=== PATIENT | female | born 1960 | race African-American/Black ===

== ENCOUNTER 2018-10-27 19:46 | Inpatient (IN) | payer MEDICARE, MEDICAID ==
[2018-10-27] MEDS ORDERED: Sterile Water 10 ML VIAL IVP PRN (23:38)
[2018-10-27] MEDS ORDERED: Activase 2 MG VIAL CATH PRN (23:38)
[2018-10-27] MEDS ORDERED: Benzocaine 20% Spray 60 ML CAN PO PRN (23:40)
[2018-10-27] MEDS ORDERED: cloNIDine 0.1 MG TAB PO PRN (23:41)
[2018-10-27] MEDS ORDERED: Chloraseptic Spray 180 ml Bottle PO PRN (23:51)
[2018-10-27] MEDS ORDERED: Sodium Bicarbonate Tab 325 MG TAB PER TUBE PRN (23:56)
[2018-10-27] MEDS ORDERED: Pancrelipase DR 12000 1 CAP FS PRN (23:56)
[2018-10-28] MEDS: HYDROcodone/Acetaminophen 5/325 mg Tablet PO PRN ×4 (00:20→21:16)
[2018-10-28] MEDS: hydrOXYzine 25 MG TAB PO PRN ×3 (00:20→15:26)
[2018-10-28] MEDS ORDERED: Ondansetron ODT 4 MG TAB PO SCH (00:30)
[2018-10-28] MEDS: Ondansetron ODT 4 MG TAB PO SCH ×6 (00:35→23:28)
[2018-10-28 01:48] VITALS: BMI 30.7
[2018-10-28 07:03] LABS: #Basophils 0.2 thou/uL (0.0-0.2); #Eosinphils 0.2 thou/uL (0.0-0.7); #Lymphocytes 4.5 thou/uL (1.20-3.40); #Monocytes 1.1 thou/uL (0.11-0.59); #Neutrophils 6.3 thou/uL (1.40-6.50); %Basophils 1.6 % (0.0-1.0); %Eosinophils 1.9 % (0.0-10.0); %Lymphocytes 36.4 % (21.0-51.0); %Monocytes 8.9 % (0.0-10.0); %Neutrophils 51.3 % (42.0-75.0); Anion Gap 14 mmol/L (10-20); BUN (Urea Nitrogen) 56 mg/dL (9.8-20.1); Calc. Creatinine Clearance 18 mL/min (70-130); Calcium 9.8 mg/dL (7.8-10.44); Carbon Dioxide 29 mmol/L (22-29); Chloride 98 mmol/L (98-107); Estimated GFR-MDRD 14; Glucose 110 mg/dL (70-105); Hemoglobin 7.5 g/dL (12.0-16.0); Mean Corpuscular HGB CONC 30.2 g/dL (32.0-36.0); Mean Corpuscular Hemoglobin 28.6 pg (27.0-31.0); Mean Corpuscular Volume 94.7 fL (78.0-98.0); Mean Platelet Volume 7.7 fL (7.4-10.4); Phosphorus 2.3 mg/dL (2.3-4.7); Platelet Count 409 thou/uL (130-400); Potassium 4.1 mmol/L (3.5-5.1); RBC Distribution Width 18.5 % (11.5-14.5); Red Blood Cell (RBC) Count 2.63 mill/uL (4.20-5.40); Sodium 137 mmol/L (136-145); White Blood Cell (WBC) Count 12.4 thou/uL (4.8-10.8)
[2018-10-28] MEDS: Metoclopramide HCl 10 MG TAB PO SCH ×4 (09:36→20:48)
[2018-10-28] MEDS: Zinc Sulfate 220 MG CAP PO SCH (09:37)
[2018-10-28] MEDS: FLUoxetine HCl 20 MG CAP PO SCH (09:37)
[2018-10-28] MEDS: Multivitamin W/ Minerals 1 TAB PO SCH (09:37)
[2018-10-28] MEDS: Calcium Carbonate 500 MG ChewTAB PO SCH ×3 (09:37→17:25)
[2018-10-28] MEDS: PHOS-NAK 1 PKT PACK PER TUBE SCH (09:37)
[2018-10-28] MEDS: Ascorbic Acid 500 mg Chewable Tablet PO SCH ×2 (09:37→20:48)
[2018-10-28] MEDS: Heparin 5,000 UNITS/ML VIAL SC SCH ×2 (09:39→20:52)
[2018-10-28] MEDS: Dronabinol 2.5 MG CAP PO SCH ×2 (15:28→20:52)
[2018-10-28] MEDS: Cepastat Lozenges 1 LOZ PO SCH ×2 (15:28→20:48)
[2018-10-28] MEDS: Megestrol Acetate 800 MG/20 ML UDCUP PO SCH (15:28)
[2018-10-28] MEDS: Lorazepam 1 MG TAB PO PRN (20:51)
--- NOTE | 2018-10-29 01:02 | HP ---
HISTORY OF PRESENT ILLNESS: The patient is a 57-year-old black female with a history of recent prolonged correction stay, status post rectal surgery with developed of a left heel decubitus secondary to sedentary status. She subsequently also had a gastric sleeve operation in January of 2018 with postoperative difficulty with recurrent nausea, vomiting, poor oral intake, and subsequent dehydration and weakness. This precipitated the admission where she had total parental nutrition for a time, improved, was taken off this, sent to [facility]. There again, she was sedentary and began to have recurrent nausea and vomiting. Went back to the hospital at this time having poor healing of the left heel decubitus and left lateral foot decubitus. I and D was subsequently done. She has a history of end-stage renal disease, on dialysis. This was continued. It was felt that her poor oral intake and her dialysis put her in a catabolic state and that she could not heal and therefore had a Dobhoff tube placed as she was not a candidate for a PEG tube because of recent gastric sleeve. She did tolerate tube feedings. Her TPN was finally discontinued and in fact she was eating some oral food. She was on Reglan and appeared to be getting better, but was felt not to be stable to be discharged back to the correction and was transferred to the [facility] for better observation and monitoring of her nutritional status, her wound care, and her diabetic gastroparesis. There is a plan that if she cannot tolerate the Dobhoff, she would have to have a surgical jejunostomy by Dr. Rivera. She did, however, improved with the TPN and Dobhoff with replacement of her magnesium and phosphorus. As mentioned above, she continued on her dialysis. She had no problems with congestive heart failure, chest pain, fever, chills, diarrhea, cough, or sputum production. 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 PAST SURGICAL HISTORY: Positive for AV fistula for hemodialysis, gastric sleeve with intestinal repair in January of 2018, bilateral cataracts, right arm and hand surgery, cholecystectomy, right mastectomy, tonsillectomy, and placement of a right internal jugular dual-lumen hemodialysis catheter. MEDICATIONS: On transfer included; 1. Tylenol 1000 mg every 4 hours as needed. 2. Keflex 500 mg twice daily for the wound. 3. Marinol 5 mg twice daily for recurrent nausea. 4. Fluoxetine 20 mg daily. 5. Hydrocodone 5/325 every 6 hours as needed. 6. Lorazepam 0.5 mg every 8 hours as needed. 7. Megace 800 mg daily. 8. Zofran 4 mg every 6 hours as needed. 9. Pancrelipase 12,000 units 3 times daily. 10. Protonix 40 mg daily. 11. Sodium bicarb 650 mg daily. 12. Reglan 10 mg before meals and at bedtime. ALLERGIES: SHE HAS HISTORY OF ALLERGIES TO CODEINE AND LATEX. REVIEW OF SYSTEMS: HEENT: She has occasional headaches. She has no change in her vision. She has no hoarseness, sore throat, or nosebleeds. PULMONARY: She denies shortness of breath, wheezing, cough, fever, night sweats. CARDIOVASCULAR: She denies palpitations, shortness of breath, orthopnea, chest pain. GASTROINTESTINAL: She has a very poor appetite, recurrent nausea and vomiting. No diarrhea, constipation, abdominal pain. GENITOURINARY: She denies dysuria, hematuria, or nocturia. MUSCULOSKELETAL: She denies pain and stiffness in her arms and legs. PHYSICAL EXAMINATION: GENERAL: The patient is a middle-aged black female, lying in bed, in no acute distress, appear fatigued, is oriented x3, cooperative. VITAL SIGNS: Show to have blood pressure 141/90, O2 sats 100% on 1.5 L, respirations 20, pulse 92, afebrile. HEENT: Pupils are equal, round, and reactive to light and accommodation. Sclerae anicteric. Conjunctivae pale. Oral mucous membranes well hydrated. NECK: Supple. No nodes or masses. There is internal jugular catheter in place. LUNGS: Clear to auscultation and percussion bilaterally. CARDIOVASCULAR: Showed regular rhythm. No gallops or murmurs. ABDOMEN: Soft and nontender. No masses or organomegaly. Moderately obese. No rebound or guarding. SKIN/EXTREMITIES: Display no edema, clubbing, cyanosis. Showed left heel is bandaged and is offloaded. NEUROLOGICAL: Cranial nerves 2 through 12 intact. Deep tendon reflexes 2+ and equal. Absent Babinski. There is a Dobhoff in place through her nose. LABORATORY DATA: Today reveal white count 12,400, hematocrit 24, hemoglobin 7.5. PT 13, INR 1.0. Sodium 137, potassium 4.1, chloride 98, bicarb 29, BUN 56, creatinine 4.11, glucose 110. Accu-Cheks ranged from 109 to 225. Calcium 9.8, phosphorus 2.3. ASSESSMENT: 1. The patient is a 57-year-old black female with a history of type 2 diabetes; subsequent end-stage renal disease, on hemodialysis 3 times weekly, who has developed a left heel ulcer secondary to sedentary activity and catabolic state from end-stage renal disease. She has had very poor appetite, in fact recurrent nausea and vomiting after a gastric sleeve. This is despite having 2 rounds of TPN. She is still requiring a Dobhoff feeding. She is not a candidate for PEG tube because of her surgery. Interestingly, however, she is eating at times with no nausea and vomiting. 2. Severe deconditioning with mainly bed rest for the last several months. 3. Malnutrition secondary to recurrent nausea and vomiting, now improving after TPN and Dobhoff feeding. PLAN: 1. Continue dialysis on Wednesday, , and Wednesday under Dr. Whaley. 2. Continue Dobhoff feeding with tube feeding, Chadwick high-protein tube feed at 40 mL an hour, 30 mL every 4-hour water flush in addition to her oral Ruben high-protein, consistent carb diet. 3. Heel decubitus will be cared for by the Wound Care. 4. Vital signs will be monitored closely and continued on previous medications of clonidine as needed for elevated blood pressure. 5. Her anxiety, depression will continue to be treated with fluoxetine 20 mg daily. 6. Her gastroparesis will be treated with Zofran and Reglan and she will be continued on tube feedings as tolerated and if cannot tolerate tube feedings, will require transfer back to [facility] for surgical jejunostomy and possible debridement of left heel decubitus. Job ID: [id number]
[2018-10-29] MEDS: HYDROcodone/Acetaminophen 5/325 mg Tablet PO PRN ×3 (04:40→20:05)
[2018-10-29] MEDS: hydrOXYzine 25 MG TAB PO PRN (04:41)
[2018-10-29] MEDS: Ondansetron ODT 4 MG TAB PO SCH ×4 (05:16→23:54)
--- NOTE | 2018-10-29 08:35 | PRG ---
DATE OF SERVICE: 10/29/2018 SUBJECTIVE: Ms. Chino is a very pleasant 57-year-old black female, who has had multiple medical problems, but has basically end-stage renal disease, on dialysis three times a week. She has had a gastric sleeve, but was unable to tolerate oral food. She had a Dobhoff placed because she was unable to have a PEG tube placed. She has had some tube feedings and occasionally is able to eat real food. She has had significant nutritional problems and has not been eating well. She does have diabetic gastroparesis. She was transferred to [facility] for physical therapy and occupational therapy, and especially to monitor nutritional status and increase her nutrition. She is also here for better observation and wound care. The patient states she had a fairly good night last night and feels a little better this morning. She states her abdomen is not bothering her much at all today. OBJECTIVE: VITAL SIGNS: Blood pressure last night was 168/72, pulse 89, respirations 18, O2 saturation 100% on 2 L nasal cannula. T-max 98.4. GENERAL: This is a well-developed, well-nourished, somewhat obese, black female, who is resting and states she is doing well. HEENT: Normocephalic and nontraumatic cranium. The pupils are equally round and reactive. Extraocular movements are intact. Nose and throat are clear. Mucous membranes are moist. NECK: Supple without masses, nodes or bruits. IJ catheter is in place. LUNGS: The chest is clear to auscultation. No rales, no rhonchi, no wheezes are heard today. No cough is noted. HEART: Regular rate and rhythm without murmurs, gallops, or rubs. ABDOMEN: Soft, nontender without organomegaly. Normal bowel sounds are noted. No rebound or guarding is noted. Large incision, well-healed, midline. GENITOURINARY: Deferred. EXTREMITIES: Reveal no clubbing, cyanosis, or edema. The patient has her left heel offloaded and it is bandaged. NEURO: The patient is oriented to person, place, and time. The patient does have a Dobhoff, which is functioning well . ASSESSMENT: 1. Diabetes type 2. 2. End-stage renal disease, on hemodialysis three times a week. 3. Left heel decubitus ulcer. 4. Catabolic state secondary to end-stage renal disease. 5. Nausea and vomiting post gastric sleeve. Therefore, the patient has a jejunostomy tube. 6. Dobhoff feeding tube. 7. Malnutrition secondary to nausea and vomiting. 8. Cough, generalized weakness. PLAN: 1. Continue dialysis Wednesday, , Wednesday by Dr. Whaley. 2. Continue Dobhoff feedings. 3. Wound care for the patient's decubitus on her heel. 4. Monitor the patient's blood pressure closely and adjust medications as needed. 5. Continue fluoxetine for anxiety and depressive disorder. 6. Continue Reglan and Zofran for gastroparesis. 7. If the patient is unable to tolerate her tube feedings, she will have to be transferred to [facility] for surgical jejunostomy. Job ID: [id number]
[2018-10-29] MEDS: Multivitamin W/ Minerals 1 TAB PO SCH (08:45)
[2018-10-29] MEDS: Heparin 5,000 UNITS/ML VIAL SC SCH ×2 (08:45→20:04)
[2018-10-29] MEDS: Calcium Carbonate 500 MG ChewTAB PO SCH ×3 (08:45→18:37)
[2018-10-29] MEDS: Cepastat Lozenges 1 LOZ PO SCH ×3 (08:45→20:07)
[2018-10-29] MEDS: FLUoxetine HCl 20 MG CAP PO SCH (08:45)
[2018-10-29] MEDS: Metoclopramide HCl 10 MG TAB PO SCH ×4 (08:45→20:05)
[2018-10-29] MEDS: Ascorbic Acid 500 mg Chewable Tablet PO SCH ×2 (08:45→20:05)
[2018-10-29] MEDS: Zinc Sulfate 220 MG CAP PO SCH (08:45)
[2018-10-29] MEDS: PHOS-NAK 1 PKT PACK PER TUBE SCH (08:45)
[2018-10-29] MEDS: Dronabinol 2.5 MG CAP PO SCH ×2 (08:46→20:07)
[2018-10-29] MEDS: Megestrol Acetate 800 MG/20 ML UDCUP PO SCH (08:46)
[2018-10-29] MEDS: Lorazepam 1 MG TAB PO PRN (20:05)
[2018-10-30] MEDS: hydrOXYzine 25 MG TAB PO PRN ×2 (03:06→21:50)
[2018-10-30] MEDS: HYDROcodone/Acetaminophen 5/325 mg Tablet PO PRN ×3 (03:06→17:11)
[2018-10-30] MEDS: Ondansetron ODT 4 MG TAB PO SCH ×4 (05:33→23:37)
--- NOTE | 2018-10-30 08:02 | PRG ---
DATE OF SERVICE: SUBJECTIVE: This is a well-developed, well-nourished, very pleasant 57-year-old black female with multiple problems including end-stage renal disease that has to be on hemodialysis three times a week, gastric sleeve, but mainly poor nutritional intake. She has not been able to eat very well because of her diabetic gastroparesis. She was transferred to [facility] for PT and OT and to monitor her nutritional status. I walked in this morning and she says, "I am hungry today and I want to eat something." She states she did have some eggs and a biscuit and sausage yesterday and was able to tolerate that fairly well. She states she has begun to feel much better and much stronger. OBJECTIVE: VITAL SIGNS: Today, reveal blood pressure 136/64, pulse 87 to 93, respirations 18, O2 saturation 100% on 2 L, and T-max 98. GENERAL: This is a well-developed, well-nourished, very pleasant black female, in no apparent distress at this time. HEENT: Normocephalic and nontraumatic cranium. Pupils equal, round, and reactive. Extraocular movements are intact. Nose and throat are clear. Dobhoff tube was noted to be down the right naris. Mucous membranes are moist. NECK: Supple without masses, nodes, or bruits. CHEST: Clear to auscultation. No rales, rhonchi, wheezes, or cough is heard today. HEART: Reveals a regular rate and rhythm without murmurs, gallops, or rubs. ABDOMEN: Soft, nontender. No organomegaly is noted. Normal bowel sounds are noted in all 4 quadrants. No rebound or guarding is noted. Abdominal incision is still well healed. : Deferred. EXTREMITIES: Reveal no clubbing, cyanosis, or edema. The patient's left heel is offloaded and still bandaged. NEUROLOGIC: The patient is oriented x3. ASSESSMENT: 1. Diabetes type 2, which is fairly well under control with good sugars. 2. End-stage renal disease, on hemodialysis three times a week. 3. Left heel ulcer. 4. Catabolic state secondary to end-stage renal disease. 5. Nausea and vomiting post gastric sleeve, so therefore the patient has a jejunostomy tube and a Dobhoff feeding tube. 6. Malnutrition secondary to nausea and vomiting. 7. Cough. 8. The patient states she is hungry and feels better about eating today. PLAN: 1. Continue dialysis Wednesday, , Wednesday under the auspices of Dr. Whaley. 2. Continue Dobhoff feedings. 3. Wound care for the patient's decubitus on her heel. 4. Encourage the patient to eat a little bit of food each day. 5. Monitor the patient's blood pressure closely. Adjust medications as needed. 6. Continue fluoxetine for anxiety and depressive disorder. 7. Continue Reglan and Zofran for gastroparesis. 8. If the patient is unable to tolerate her tube feeding, she will have to be transferred to [facility] for surgical jejunostomy. Job ID: [id number]
[2018-10-30] MEDS: Heparin 5,000 UNITS/ML VIAL SC SCH ×2 (09:17→20:33)
[2018-10-30] MEDS: FLUoxetine HCl 20 MG CAP PO SCH (09:18)
[2018-10-30] MEDS: PHOS-NAK 1 PKT PACK PER TUBE SCH (09:18)
[2018-10-30] MEDS: Lorazepam 1 MG TAB PO PRN (09:18)
[2018-10-30] MEDS: Cepastat Lozenges 1 LOZ PO SCH ×3 (09:18→20:33)
[2018-10-30] MEDS: Multivitamin W/ Minerals 1 TAB PO SCH (09:18)
[2018-10-30] MEDS: Zinc Sulfate 220 MG CAP PO SCH (09:18)
[2018-10-30] MEDS: Dronabinol 2.5 MG CAP PO SCH ×2 (09:19→20:34)
[2018-10-30] MEDS: Megestrol Acetate 800 MG/20 ML UDCUP PO SCH (09:19)
[2018-10-30] MEDS: Ascorbic Acid 500 mg Chewable Tablet PO SCH ×2 (09:19→20:33)
[2018-10-30] MEDS: Metoclopramide HCl 10 MG TAB PO SCH ×4 (09:19→20:33)
[2018-10-30] MEDS: Calcium Carbonate 500 MG ChewTAB PO SCH ×3 (09:19→17:10)
[2018-10-31] MEDS: HYDROcodone/Acetaminophen 5/325 mg Tablet PO PRN ×4 (01:45→23:18)
[2018-10-31] MEDS: Ondansetron ODT 4 MG TAB PO SCH ×4 (05:14→23:24)
[2018-10-31] MEDS: Cepastat Lozenges 1 LOZ PO SCH ×3 (08:16→20:30)
[2018-10-31] MEDS: Calcium Carbonate 500 MG ChewTAB PO SCH ×3 (08:16→16:26)
[2018-10-31] MEDS: Ascorbic Acid 500 mg Chewable Tablet PO SCH ×2 (08:16→20:26)
[2018-10-31] MEDS: Metoclopramide HCl 10 MG TAB PO SCH ×4 (08:16→20:26)
[2018-10-31] MEDS: Heparin 5,000 UNITS/ML VIAL SC SCH ×3 (08:17→20:29)
[2018-10-31] MEDS: Dronabinol 2.5 MG CAP PO SCH ×2 (08:17→20:15)
[2018-10-31] MEDS: FLUoxetine HCl 20 MG CAP PO SCH (08:17)
[2018-10-31] MEDS: Megestrol Acetate 800 MG/20 ML UDCUP PO SCH (08:18)
[2018-10-31] MEDS: Multivitamin W/ Minerals 1 TAB PO SCH (08:18)
[2018-10-31] MEDS: PHOS-NAK 1 PKT PACK PER TUBE SCH (08:18)
[2018-10-31] MEDS: Zinc Sulfate 220 MG CAP PO SCH (08:19)
[2018-10-31] MEDS: hydrOXYzine 25 MG TAB PO PRN ×3 (10:03→23:20)
[2018-10-31] MEDS ORDERED: Megestrol Acetate 400 MG/10 ML UDCUP PO SCH (11:30)
[2018-10-31 16:16] LABS: #Basophils 0.1 thou/uL (0.0-0.2); #Eosinphils 0.2 thou/uL (0.0-0.7); #Lymphocytes 3.3 thou/uL (1.20-3.40); #Monocytes 0.7 thou/uL (0.11-0.59); #Neutrophils 5.5 thou/uL (1.40-6.50); %Basophils 1.4 % (0.0-1.0); %Eosinophils 2.3 % (0.0-10.0); %Lymphocytes 33.3 % (21.0-51.0); %Monocytes 7.3 % (0.0-10.0); %Neutrophils 55.7 % (42.0-75.0); ALT (SGPT) 9 U/L (8-55); AST (SGOT) 14 U/L (5-34); Albumin 3.1 g/dL (3.5-5.0); Alkaline Phosphatase 135 U/L (40-150); Anion Gap 16 mmol/L (10-20); BUN (Urea Nitrogen) 53 mg/dL (9.8-20.1); Bilirubin, Total 0.3 mg/dL (0.2-1.2); Calc. Creatinine Clearance 17 mL/min (70-130); Calcium 9.8 mg/dL (7.8-10.44); Carbon Dioxide 29 mmol/L (22-29); Chloride 97 mmol/L (98-107); Estimated GFR-MDRD 12; Globulin 4.3 g/dL (2.4-3.5); Glucose 148 mg/dL (70-105); Hemoglobin 8.2 g/dL (12.0-16.0); Mean Corpuscular HGB CONC 30.5 g/dL (32.0-36.0); Mean Corpuscular Hemoglobin 29.1 pg (27.0-31.0); Mean Corpuscular Volume 95.5 fL (78.0-98.0); Mean Platelet Volume 8.4 fL (7.4-10.4); Platelet Count 392 thou/uL (130-400); Potassium 4.1 mmol/L (3.5-5.1); Protein, Total 7.4 g/dL (6.0-8.3); RBC Distribution Width 17.9 % (11.5-14.5); Red Blood Cell (RBC) Count 2.83 mill/uL (4.20-5.40); Sodium 138 mmol/L (136-145); White Blood Cell (WBC) Count 9.9 thou/uL (4.8-10.8)
--- NOTE | 2018-10-31 16:56 | PRG ---
DATE OF SERVICE: 10/31/2018 SUBJECTIVE: The patient is lying in the bed, feels well, but states that she does not want to have her Dobhoff replaced. It is clogged at this time. She is eating fairly well, but states she cannot eat all the food that is given to her on the tray. She is advised that the reason she is here is to increase her nutrition and hopefully heal her wounds. OBJECTIVE: LUNGS: Clear. CARDIAC: Showed regular rhythm. ABDOMEN: Soft and nontender. VITAL SIGNS: Show blood pressure 145/65, pulse 92, O2 saturation 100% on 1.5 L. EXTREMITIES: Left heel is bandaged. LABORATORY DATA: Show sodium is 138, potassium 4.1, chloride 97, bicarb 29, BUN 53, creatinine 4.56, glucose ranged from 148 to 165. Albumin is 3.1. ASSESSMENT: 1. End-stage renal disease, stable, on hemodialysis 3 times weekly. 2. Poor nutrition secondary to poor oral intake status post gastric sleeve with possible gastroparesis, possible psychogenic. 3. Left heel decubitus, healing poorly secondary to poor nutrition. PLAN: 1. Stressed the patient's need to increase the nutrition, and we will do calorie count and strict I and O as she is refusing Dobhoff at this time. 2. Discussed with surgeon and possibly discharge home. If not receiving Dobhoff, there is no indication for admission, but we will discuss with Physical Therapy. Job ID: [id number]
[2018-11-01] MEDS: Ondansetron ODT 4 MG TAB PO SCH ×4 (05:40→23:20)
[2018-11-01] MEDS: HYDROcodone/Acetaminophen 5/325 mg Tablet PO PRN ×3 (07:16→23:20)
[2018-11-01] MEDS: Metoclopramide HCl 10 MG TAB PO SCH ×4 (07:16→20:58)
[2018-11-01] MEDS: hydrOXYzine 25 MG TAB PO PRN ×3 (07:16→23:20)
[2018-11-01] MEDS: Calcium Carbonate 500 MG ChewTAB PO SCH ×3 (09:02→17:06)
[2018-11-01] MEDS: Heparin 5,000 UNITS/ML VIAL SC SCH ×2 (09:03→20:58)
[2018-11-01] MEDS: Cepastat Lozenges 1 LOZ PO SCH ×3 (09:03→20:58)
[2018-11-01] MEDS: Dronabinol 2.5 MG CAP PO SCH ×2 (09:03→20:58)
[2018-11-01] MEDS: FLUoxetine HCl 20 MG CAP PO SCH (09:03)
[2018-11-01] MEDS: Ascorbic Acid 500 mg Chewable Tablet PO SCH ×2 (09:03→20:57)
[2018-11-01] MEDS: Megestrol Acetate 400 MG/10 ML UDCUP PO SCH (09:04)
[2018-11-01] MEDS: Multivitamin W/ Minerals 1 TAB PO SCH (09:04)
[2018-11-01] MEDS: PHOS-NAK 1 PKT PACK PER TUBE SCH (09:05)
[2018-11-01] MEDS: Zinc Sulfate 220 MG CAP PO SCH (09:05)
--- NOTE | 2018-11-01 19:02 | PRG ---
DATE OF SERVICE: 11/01/2018 SUBJECTIVE: The patient is lying in bed, resting, has been eating 30% of her meals a day, and calorie count has shown that she has refused dinner and has taken in only 892 calories today. She is still on dialysis and has been told that this is not enough to sustain her weight and much less to heal her wound. She is still refusing Dobbhoff tube, also her daughter is refusing to take her home and I advised the patient that she will not survive without ingesting more food and cannot live without assistance. OBJECTIVE: VITAL SIGNS: Show temperature is 98, pulse 85, respirations 20, O2 sats 100% on 2 L, and blood pressure 160/56. LUNGS: Clear. CARDIAC: Regular rhythm. ABDOMEN: Soft and nontender. EXTREMITIES: Left heel is bandaged. LABORATORY DATA: Shows Accu-Cheks ranged from 98 to 141. ASSESSMENT: 1. Persistent poor oral intake and catabolic state with only 892 calories in, inability to the heel decubitus. 2. Stable end-stage renal disease, on hemodialysis. PLAN: Discussed discharge planning with daughter and mother and surgeon, Dr. Rivera. This patient does not meet qualifications to stay at SNF if she is not undergoing Dobbhoff treatment and wound care and is only using outpatient dialysis and eating oral foods. Job ID: [id number]
[2018-11-02] MEDS: Ondansetron ODT 4 MG TAB PO SCH ×3 (05:26→17:50)
[2018-11-02] MEDS: HYDROcodone/Acetaminophen 5/325 mg Tablet PO PRN ×3 (05:56→19:48)
[2018-11-02] MEDS: hydrOXYzine 25 MG TAB PO PRN ×2 (05:56→13:25)
[2018-11-02] MEDS: Calcium Carbonate 500 MG ChewTAB PO SCH ×3 (09:26→17:50)
[2018-11-02] MEDS: Zinc Sulfate 220 MG CAP PO SCH (09:30)
[2018-11-02] MEDS: Ascorbic Acid 500 mg Chewable Tablet PO SCH ×2 (09:30→20:45)
[2018-11-02] MEDS: Multivitamin W/ Minerals 1 TAB PO SCH (09:30)
[2018-11-02] MEDS: Heparin 5,000 UNITS/ML VIAL SC SCH ×2 (09:30→20:45)
[2018-11-02] MEDS: FLUoxetine HCl 20 MG CAP PO SCH (09:30)
[2018-11-02] MEDS: Metoclopramide HCl 10 MG TAB PO SCH ×4 (09:31→20:46)
[2018-11-02] MEDS: PHOS-NAK 1 PKT PACK PER TUBE SCH (09:31)
[2018-11-02] MEDS: Megestrol Acetate 400 MG/10 ML UDCUP PO SCH (09:31)
[2018-11-02] MEDS: Cepastat Lozenges 1 LOZ PO SCH ×3 (09:32→20:45)
[2018-11-02] MEDS: Dronabinol 2.5 MG CAP PO SCH ×2 (12:14→20:45)
[2018-11-02] MEDS: Lorazepam 1 MG TAB PO PRN (19:48)
[2018-11-02] MEDS: Mirtazapine 30 MG TAB PO SCH (20:46)
[2018-11-03] MEDS: Ondansetron ODT 4 MG TAB PO SCH ×4 (05:36→18:29)
--- NOTE | 2018-11-03 07:39 | PRG ---
DATE OF SERVICE: 11/02/2018 SUBJECTIVE: The patient is sitting up in the chair eating her meals. Apparently is eating close to 900 calories daily plus the Nepro and is taking her calcium supplements. She states that she is attempting to work with therapy, but agrees that she might need a different antidepressant as the Prozac has not worked for her before. She also states that she does not want to go home without walking. Discussed with Dr. Rivera, who feels that 1000 calories a day would be her maximum and that she should heal her wounds if she ambulates. OBJECTIVE: VITAL SIGNS: Show blood pressure 156/60, temperature is 98, pulse 80, respirations 20, O2 saturations 100% on room air. Accu-Cheks ranged from 99 to 174. LUNGS: Clear. CARDIAC: Showed regular rhythm. ABDOMEN: Soft and nontender. ASSESSMENT: 1. Stable end-stage renal disease, on hemodialysis. 2. Healing left heel decubitus. 3. Decreased, but stable supplemental intake with 900 calories daily and Nepro. 4. Depression and anxiety persistent despite taking Prozac, which patient states does not work for her. PLAN: Discontinue Prozac. Start mirtazapine 30 mg every night, and monitor oral intake and mood. Job ID: [id number]
[2018-11-03] MEDS: Heparin 5,000 UNITS/ML VIAL SC SCH ×2 (09:13→22:01)
[2018-11-03] MEDS: Megestrol Acetate 400 MG/10 ML UDCUP PO SCH (09:13)
[2018-11-03] MEDS: Ascorbic Acid 500 mg Chewable Tablet PO SCH ×2 (09:14→22:00)
[2018-11-03] MEDS: Zinc Sulfate 220 MG CAP PO SCH (09:14)
[2018-11-03] MEDS: PHOS-NAK 1 PKT PACK PER TUBE SCH (09:14)
[2018-11-03] MEDS: Multivitamin W/ Minerals 1 TAB PO SCH (09:14)
[2018-11-03] MEDS: Dronabinol 2.5 MG CAP PO SCH ×2 (09:16→22:01)
[2018-11-03] MEDS: HYDROcodone/Acetaminophen 5/325 mg Tablet PO PRN ×2 (09:19→22:02)
[2018-11-03] MEDS: hydrOXYzine 25 MG TAB PO PRN (09:20)
[2018-11-03] MEDS: Cepastat Lozenges 1 LOZ PO SCH ×3 (09:20→22:00)
[2018-11-03] MEDS: Metoclopramide HCl 10 MG TAB PO SCH ×4 (09:20→22:01)
[2018-11-03] MEDS: Calcium Carbonate 500 MG ChewTAB PO SCH ×3 (09:20→18:28)
[2018-11-03] MEDS: Mirtazapine 30 MG TAB PO SCH (22:02)
[2018-11-03] MEDS: Lorazepam 1 MG TAB PO PRN (22:03)
[2018-11-04] MEDS: Ondansetron ODT 4 MG TAB PO SCH ×4 (06:12→23:10)
[2018-11-04] MEDS: Megestrol Acetate 400 MG/10 ML UDCUP PO SCH (08:56)
[2018-11-04] MEDS: Dronabinol 2.5 MG CAP PO SCH ×2 (08:56→21:28)
[2018-11-04] MEDS: Ascorbic Acid 500 mg Chewable Tablet PO SCH ×2 (08:57→21:29)
[2018-11-04] MEDS: Multivitamin W/ Minerals 1 TAB PO SCH (08:57)
[2018-11-04] MEDS: Zinc Sulfate 220 MG CAP PO SCH (08:57)
[2018-11-04] MEDS: Metoclopramide HCl 10 MG TAB PO SCH ×4 (08:57→21:29)
[2018-11-04] MEDS: HYDROcodone/Acetaminophen 5/325 mg Tablet PO PRN ×2 (09:04→21:36)
[2018-11-04] MEDS: Heparin 5,000 UNITS/ML VIAL SC SCH ×2 (09:24→21:29)
[2018-11-04] MEDS: Calcium Carbonate 500 MG ChewTAB PO SCH ×3 (09:35→18:07)
[2018-11-04] MEDS: Cepastat Lozenges 1 LOZ PO SCH ×3 (09:35→21:29)
[2018-11-04] MEDS: PHOS-NAK 1 PKT PACK PER TUBE SCH (12:07)
--- NOTE | 2018-11-04 17:57 | PRG ---
DATE OF SERVICE: 11/03/2018 SUBJECTIVE: The patient returned from the emergency room, where she had a seizure-like episode during dialysis, but has been evaluated with no significant abnormalities in the emergency room and cleared to return to the hospital. She has been doing well with her eating, up to 900 calories daily and has felt well, cooperating with therapy, working in the bed, working on O2. OBJECTIVE: VITAL SIGNS: Temperature 98.7, pulse 89, respirations 20, O2 saturations 96% on room air, and blood pressure 166/67. LUNGS: Clear. CARDIAC: Showed regular rhythm. ABDOMEN: Soft and nontender. SKIN/EXTREMITIES: Displayed no edema, clubbing, or cyanosis. There is a left heel bandaged. NEUROLOGICAL: Shows no focal findings. ASSESSMENT: 1. End-stage renal disease, on hemodialysis with malfunctioning catheter and need of catheter replacement. 2. Possible episode of seizure - has previous episode, previously on no medication, but with no abnormalities in the emergency room and we will monitor and possibly due to hypotension. 3. Poorly healing left heel ulcer with colonization, carbapenem resistant Klebsiella, in isolation with topical treatment only, has no evidence of sepsis. PLAN: Isolation. Continue dialysis. Continue to monitor nutritional intake. Continue PT, OT, and discuss cooperation with the therapy. Job ID: [id number]
[2018-11-04] MEDS: Mirtazapine 30 MG TAB PO SCH (21:29)
[2018-11-05] MEDS: Ondansetron ODT 4 MG TAB PO SCH ×4 (05:24→18:32)
[2018-11-05] MEDS: Metoclopramide HCl 10 MG TAB PO SCH ×4 (07:40→21:34)
[2018-11-05] MEDS: hydrOXYzine 25 MG TAB PO PRN ×2 (07:40→18:32)
[2018-11-05] MEDS: HYDROcodone/Acetaminophen 5/325 mg Tablet PO PRN ×2 (07:40→18:32)
[2018-11-05] MEDS: Calcium Carbonate 500 MG ChewTAB PO SCH ×3 (09:03→18:43)
[2018-11-05] MEDS: Cepastat Lozenges 1 LOZ PO SCH ×3 (09:04→21:23)
[2018-11-05] MEDS: Megestrol Acetate 400 MG/10 ML UDCUP PO SCH (09:04)
[2018-11-05] MEDS: Dronabinol 2.5 MG CAP PO SCH ×2 (09:05→21:33)
[2018-11-05] MEDS: Ascorbic Acid 500 mg Chewable Tablet PO SCH ×2 (09:09→21:34)
[2018-11-05] MEDS: Multivitamin W/ Minerals 1 TAB PO SCH (09:09)
[2018-11-05] MEDS: Heparin 5,000 UNITS/ML VIAL SC SCH ×2 (09:09→21:34)
[2018-11-05] MEDS: Zinc Sulfate 220 MG CAP PO SCH (09:10)
[2018-11-05] MEDS: PHOS-NAK 1 PKT PACK PER TUBE SCH (09:10)
[2018-11-05] MEDS: Mirtazapine 30 MG TAB PO SCH (21:34)
[2018-11-06] MEDS: Ondansetron ODT 4 MG TAB PO SCH ×5 (00:03→23:40)
[2018-11-06] MEDS: HYDROcodone/Acetaminophen 5/325 mg Tablet PO PRN ×3 (06:30→18:25)
[2018-11-06] MEDS: hydrOXYzine 25 MG TAB PO PRN ×2 (06:30→21:32)
[2018-11-06] MEDS: Metoclopramide HCl 10 MG TAB PO SCH ×4 (08:10→21:32)
[2018-11-06] MEDS: Heparin 5,000 UNITS/ML VIAL SC SCH ×2 (08:10→21:30)
[2018-11-06] MEDS: Zinc Sulfate 220 MG CAP PO SCH (08:10)
[2018-11-06] MEDS: Multivitamin W/ Minerals 1 TAB PO SCH (08:10)
[2018-11-06] MEDS: Calcium Carbonate 500 MG ChewTAB PO SCH ×3 (08:10→18:27)
[2018-11-06] MEDS: Ascorbic Acid 500 mg Chewable Tablet PO SCH ×2 (08:10→21:31)
[2018-11-06] MEDS: Megestrol Acetate 400 MG/10 ML UDCUP PO SCH (09:07)
[2018-11-06] MEDS: Cepastat Lozenges 1 LOZ PO SCH ×3 (09:07→21:32)
[2018-11-06] MEDS: Dronabinol 2.5 MG CAP PO SCH ×2 (09:07→21:32)
[2018-11-06] MEDS: PHOS-NAK 1 PKT PACK PER TUBE SCH (09:08)
[2018-11-06] MEDS: Acetaminophen 500 MG TAB PO PRN (10:02)
[2018-11-06] MEDS: Mirtazapine 30 MG TAB PO SCH (21:31)
[2018-11-07] MEDS: Ondansetron ODT 4 MG TAB PO SCH ×4 (05:15→23:44)
[2018-11-07] MEDS: Metoclopramide HCl 10 MG TAB PO SCH ×4 (09:35→19:57)
[2018-11-07] MEDS: Cepastat Lozenges 1 LOZ PO SCH ×3 (09:35→19:54)
[2018-11-07] MEDS: Calcium Carbonate 500 MG ChewTAB PO SCH ×3 (09:35→16:59)
[2018-11-07] MEDS: Ascorbic Acid 500 mg Chewable Tablet PO SCH ×2 (09:35→19:57)
[2018-11-07] MEDS: Dronabinol 2.5 MG CAP PO SCH ×2 (09:36→19:57)
[2018-11-07] MEDS: PHOS-NAK 1 PKT PACK PER TUBE SCH (09:36)
[2018-11-07] MEDS: Multivitamin W/ Minerals 1 TAB PO SCH (09:36)
[2018-11-07] MEDS: Heparin 5,000 UNITS/ML VIAL SC SCH ×2 (09:36→19:57)
[2018-11-07] MEDS: Megestrol Acetate 400 MG/10 ML UDCUP PO SCH (09:36)
[2018-11-07] MEDS: Zinc Sulfate 220 MG CAP PO SCH (09:37)
[2018-11-07] MEDS: HYDROcodone/Acetaminophen 5/325 mg Tablet PO PRN (18:01)
[2018-11-07] MEDS: hydrOXYzine 25 MG TAB PO PRN (18:02)
[2018-11-07] MEDS: PRAMOXINE TOP SCH ×2 (19:06→19:56)
[2018-11-07] MEDS: HYDROCORTISONE TOP SCH ×2 (19:06→19:56)
[2018-11-07] MEDS: Mirtazapine 30 MG TAB PO SCH (19:57)
[2018-11-08] MEDS: HYDROcodone/Acetaminophen 5/325 mg Tablet PO PRN ×3 (00:48→18:43)
[2018-11-08] MEDS: Lorazepam 1 MG TAB PO PRN ×2 (00:49→20:27)
[2018-11-08] MEDS: Ondansetron ODT 4 MG TAB PO SCH ×5 (06:00→19:14)
[2018-11-08] MEDS: Calcium Carbonate 500 MG ChewTAB PO SCH ×4 (08:06→19:14)
[2018-11-08] MEDS: HYDROCORTISONE TOP SCH ×4 (09:06→20:25)
[2018-11-08] MEDS: PRAMOXINE TOP SCH ×4 (09:06→20:25)
[2018-11-08] MEDS: Ascorbic Acid 500 mg Chewable Tablet PO SCH ×2 (09:08→20:26)
[2018-11-08] MEDS: Cepastat Lozenges 1 LOZ PO SCH ×3 (09:10→20:26)
[2018-11-08] MEDS: Heparin 5,000 UNITS/ML VIAL SC SCH ×2 (09:23→20:26)
[2018-11-08] MEDS: Metoclopramide HCl 10 MG TAB PO SCH ×5 (09:24→20:26)
[2018-11-08] MEDS: PHOS-NAK 1 PKT PACK PER TUBE SCH (09:24)
[2018-11-08] MEDS: Zinc Sulfate 220 MG CAP PO SCH (09:24)
[2018-11-08] MEDS: Multivitamin W/ Minerals 1 TAB PO SCH (09:24)
[2018-11-08] MEDS: Megestrol Acetate 400 MG/10 ML UDCUP PO SCH (09:24)
[2018-11-08] MEDS: Dronabinol 2.5 MG CAP PO SCH ×2 (09:29→20:26)
[2018-11-08] MEDS: Mirtazapine 30 MG TAB PO SCH (20:27)
[2018-11-09] MEDS: Ondansetron ODT 4 MG TAB PO SCH ×4 (02:57→18:08)
[2018-11-09] MEDS: HYDROcodone/Acetaminophen 5/325 mg Tablet PO PRN ×3 (07:54→21:44)
[2018-11-09] MEDS: Metoclopramide HCl 10 MG TAB PO SCH ×4 (07:55→21:43)
[2018-11-09] MEDS: PRAMOXINE TOP SCH ×3 (09:43→21:42)
[2018-11-09] MEDS: HYDROCORTISONE TOP SCH ×3 (09:43→21:42)
[2018-11-09] MEDS: Zinc Sulfate 220 MG CAP PO SCH (09:44)
[2018-11-09] MEDS: Multivitamin W/ Minerals 1 TAB PO SCH ×2 (09:44→10:43)
[2018-11-09] MEDS: Ascorbic Acid 500 mg Chewable Tablet PO SCH ×2 (09:44→21:42)
[2018-11-09] MEDS: Cepastat Lozenges 1 LOZ PO SCH ×3 (09:45→21:42)
[2018-11-09] MEDS: Dronabinol 2.5 MG CAP PO SCH ×2 (09:45→21:43)
[2018-11-09] MEDS: PHOS-NAK 1 PKT PACK PER TUBE SCH (09:45)
[2018-11-09] MEDS: Megestrol Acetate 400 MG/10 ML UDCUP PO SCH (09:46)
[2018-11-09] MEDS: Heparin 5,000 UNITS/ML VIAL SC SCH ×2 (09:46→21:43)
[2018-11-09] MEDS: Lorazepam 1 MG TAB PO PRN ×2 (10:40→21:43)
[2018-11-09] MEDS: Acetaminophen 500 MG TAB PO PRN (10:41)
[2018-11-09] MEDS: Calcium Carbonate 500 MG ChewTAB PO SCH ×2 (11:28→18:09)
[2018-11-09] MEDS: Mirtazapine 30 MG TAB PO SCH (21:43)
[2018-11-10] MEDS: Ondansetron ODT 4 MG TAB PO SCH ×4 (00:33→18:50)
[2018-11-10] MEDS: Metoclopramide HCl 10 MG TAB PO SCH ×4 (08:26→20:18)
[2018-11-10] MEDS: Calcium Carbonate 500 MG ChewTAB PO SCH ×3 (08:26→18:50)
[2018-11-10] MEDS: Dronabinol 2.5 MG CAP PO SCH ×2 (08:27→20:18)
[2018-11-10] MEDS: PRAMOXINE TOP SCH ×3 (09:08→20:31)
[2018-11-10] MEDS: HYDROCORTISONE TOP SCH ×3 (09:08→20:31)
[2018-11-10] MEDS: Ascorbic Acid 500 mg Chewable Tablet PO SCH ×2 (09:09→20:18)
[2018-11-10] MEDS: Zinc Sulfate 220 MG CAP PO SCH (09:09)
[2018-11-10] MEDS: PHOS-NAK 1 PKT PACK PER TUBE SCH (09:09)
[2018-11-10] MEDS: Multivitamin W/ Minerals 1 TAB PO SCH (09:09)
[2018-11-10] MEDS: Megestrol Acetate 400 MG/10 ML UDCUP PO SCH (09:10)
[2018-11-10] MEDS: Heparin 5,000 UNITS/ML VIAL SC SCH ×2 (09:12→21:36)
[2018-11-10] MEDS: Cepastat Lozenges 1 LOZ PO SCH ×3 (09:12→20:38)
[2018-11-10] MEDS: Acetaminophen 500 MG TAB PO PRN (09:47)
[2018-11-10] MEDS: HYDROcodone/Acetaminophen 5/325 mg Tablet PO PRN ×2 (11:11→19:05)
--- NOTE | 2018-11-10 18:40 | PRG ---
DATE OF SERVICE: 11/08/2018 SUBJECTIVE: The patient is cheerful with my visit, but apparently is crying at times with the nurses, still anxious and nervous. She is at dialysis at this time. OBJECTIVE: VITAL SIGNS: Temperature 98.5, pulse 114, respirations 20, O2 sats 99% on room air, blood pressure 163/70. LUNGS: Clear. CARDIAC: Regular rhythm. ABDOMEN: Soft and nontender. EXTREMITIES: Left foot is bandaged. ASSESSMENT: 1. Stable end-stage renal disease, on hemodialysis. 2. Stable bariatric surgery, tolerating diet, eating 900 to 1200 calories daily. 3. Poorly healing heel ulcer despite wound care. PLAN: 1. Arrange for a followup with Dr. Rivera end of the week. 2. Continue PT, OT, and wound care. 3. Continue hemodialysis. Job ID: [id number]
--- NOTE | 2018-11-10 18:43 | PRG ---
DATE OF SERVICE: 11/07/2018 SUBJECTIVE: The patient is more cooperative with therapy, is eating better, but is still having some problems with her foot and foul-smelling drainage despite treatment with topical antibiotics. OBJECTIVE: VITAL SIGNS: Shows temperature 97.4, pulse 91, respirations 18, O2 saturations 99% on room air, blood pressure is up to 189/72. EXTREMITIES: Left foot is bandaged with foul-smelling discharge. ASSESSMENT: 1. End-stage renal disease, on hemodialysis. 2. Bariatric surgery, eating better, tolerating 2 to 3 cans of nutrients and most of her meals. 3. Poorly healing heel ulcer. 4. Significant anxiety, neurosis. PLAN: Continue dialysis. Continue wound care. Discussed with Dr. Rivera about debridement. Job ID: [id number]
--- NOTE | 2018-11-10 18:46 | PRG ---
DATE OF SERVICE: 11/09/2018 SUBJECTIVE: The patient feels well, going to dialysis at this time with no complaints and understands she is to go to see Dr. Rivera in 2 days. OBJECTIVE: VITAL SIGNS: Show temperature is 98.7, pulse 106, respirations 20, O2 saturations 97% on room air, and blood pressure 159/68. LUNGS: Clear. CARDIAC: Showed regular rhythm. ABDOMEN: Soft and nontender. ASSESSMENT: 1. Stable bariatric surgery, tolerating supplemental diet. 2. End-stage renal disease, on hemodialysis. 3. Anxiety, neurosis, and depression appears to be stable. 4. Poorly healing heel ulcer that needed debridement. PLAN: 1. Appointment with Dr. Rivera on November 11, arrange transportation. 2. Hemodialysis tomorrow. 3. Continue to monitor caloric intake. Job ID: [id number]
--- NOTE | 2018-11-10 18:55 | PRG ---
DATE OF SERVICE: 11/10/2018 SUBJECTIVE: The patient at dialysis this time, but apparently has done well today, is much less anxious. Awaiting appointment with Dr. Rivera tomorrow. OBJECTIVE: VITAL SIGNS: Show temperature 98.2 pulse 90, respirations 18, O2 sats 97% on room air, blood pressure down to 142/63. ASSESSMENT: 1. Stable end-stage renal disease, on hemodialysis. 2. Stable bariatric surgery, tolerating 1000 calorie diet daily. 3. Poorly healing heel ulcer awaiting debridement by Dr. Rivera tomorrow. Job ID: [id number]
[2018-11-10] MEDS: Mirtazapine 30 MG TAB PO SCH (20:18)
[2018-11-10] MEDS: Lorazepam 1 MG TAB PO PRN (20:18)
[2018-11-11] MEDS: Ondansetron ODT 4 MG TAB PO SCH ×5 (01:10→17:06)
[2018-11-11] MEDS: HYDROcodone/Acetaminophen 5/325 mg Tablet PO PRN ×4 (01:11→17:06)
[2018-11-11] MEDS: Ascorbic Acid 500 mg Chewable Tablet PO SCH ×2 (08:45→22:06)
[2018-11-11] MEDS: Multivitamin W/ Minerals 1 TAB PO SCH (08:45)
[2018-11-11] MEDS: Calcium Carbonate 500 MG ChewTAB PO SCH ×3 (08:45→17:06)
[2018-11-11] MEDS: Megestrol Acetate 400 MG/10 ML UDCUP PO SCH ×2 (08:45→09:54)
[2018-11-11] MEDS: Heparin 5,000 UNITS/ML VIAL SC SCH ×2 (08:45→22:07)
[2018-11-11] MEDS: Cepastat Lozenges 1 LOZ PO SCH ×3 (08:45→22:06)
[2018-11-11] MEDS: PHOS-NAK 1 PKT PACK PER TUBE SCH ×2 (08:45→09:55)
[2018-11-11] MEDS: Zinc Sulfate 220 MG CAP PO SCH (08:45)
[2018-11-11] MEDS: Metoclopramide HCl 10 MG TAB PO SCH ×4 (08:46→22:06)
[2018-11-11] MEDS: PRAMOXINE TOP SCH ×3 (09:50→22:08)
[2018-11-11] MEDS: HYDROCORTISONE TOP SCH ×3 (09:50→22:08)
[2018-11-11] MEDS: Dronabinol 2.5 MG CAP PO SCH ×2 (10:42→22:06)
[2018-11-11] MEDS: Lorazepam 1 MG TAB PO PRN (17:06)
[2018-11-11] MEDS: Mirtazapine 30 MG TAB PO SCH (22:06)
[2018-11-11] MEDS: Acetaminophen 500 MG TAB PO PRN (22:07)
[2018-11-12] MEDS: Ondansetron ODT 4 MG TAB PO SCH ×4 (01:15→18:52)
[2018-11-12] MEDS: Ascorbic Acid 500 mg Chewable Tablet PO SCH ×2 (09:36→22:48)
[2018-11-12] MEDS: Megestrol Acetate 400 MG/10 ML UDCUP PO SCH (09:36)
[2018-11-12] MEDS: Zinc Sulfate 220 MG CAP PO SCH (09:37)
[2018-11-12] MEDS: Calcium Carbonate 500 MG ChewTAB PO SCH ×3 (09:37→18:53)
[2018-11-12] MEDS: Metoclopramide HCl 10 MG TAB PO SCH ×4 (09:37→21:07)
[2018-11-12] MEDS: Multivitamin W/ Minerals 1 TAB PO SCH (09:37)
[2018-11-12] MEDS: PHOS-NAK 1 PKT PACK PER TUBE SCH (09:37)
[2018-11-12] MEDS: Dronabinol 2.5 MG CAP PO SCH ×2 (09:37→22:48)
[2018-11-12] MEDS: Heparin 5,000 UNITS/ML VIAL SC SCH ×2 (09:38→21:07)
[2018-11-12] MEDS: Cepastat Lozenges 1 LOZ PO SCH ×3 (09:38→20:59)
[2018-11-12] MEDS: HYDROCORTISONE TOP SCH ×3 (09:38→21:08)
[2018-11-12] MEDS: PRAMOXINE TOP SCH ×3 (09:38→21:08)
[2018-11-12] MEDS: HYDROcodone/Acetaminophen 5/325 mg Tablet PO PRN ×2 (09:39→18:52)
[2018-11-12] MEDS: hydrOXYzine 25 MG TAB PO PRN (18:52)
[2018-11-12] MEDS: Mirtazapine 30 MG TAB PO SCH (21:07)
[2018-11-12] MEDS: Lorazepam 1 MG TAB PO PRN (21:08)
[2018-11-12] MEDS: Acetaminophen 500 MG TAB PO PRN (21:39)
[2018-11-13] MEDS: Ondansetron ODT 4 MG TAB PO SCH ×4 (00:25→17:43)
[2018-11-13] MEDS: HYDROcodone/Acetaminophen 5/325 mg Tablet PO PRN ×3 (06:07→20:28)
[2018-11-13] MEDS: Heparin 5,000 UNITS/ML VIAL SC SCH ×2 (08:46→20:27)
[2018-11-13] MEDS: Dronabinol 2.5 MG CAP PO SCH ×2 (08:46→20:27)
[2018-11-13] MEDS: Zinc Sulfate 220 MG CAP PO SCH (08:47)
[2018-11-13] MEDS: Cepastat Lozenges 1 LOZ PO SCH ×3 (08:47→20:27)
[2018-11-13] MEDS: Ascorbic Acid 500 mg Chewable Tablet PO SCH ×2 (08:47→20:27)
[2018-11-13] MEDS: PHOS-NAK 1 PKT PACK PER TUBE SCH (08:48)
[2018-11-13] MEDS: Metoclopramide HCl 10 MG TAB PO SCH ×4 (08:48→20:27)
[2018-11-13] MEDS: Multivitamin W/ Minerals 1 TAB PO SCH (08:48)
[2018-11-13] MEDS: HYDROCORTISONE TOP SCH ×3 (08:49→20:28)
[2018-11-13] MEDS: PRAMOXINE TOP SCH ×3 (08:49→20:28)
[2018-11-13] MEDS: Megestrol Acetate 400 MG/10 ML UDCUP PO SCH (08:49)
[2018-11-13] MEDS: Calcium Carbonate 500 MG ChewTAB PO SCH ×3 (08:50→17:43)
--- NOTE | 2018-11-13 11:32 | PRG ---
DATE OF SERVICE: 11/12/2018 SUBJECTIVE: The patient feels well sitting up in the room visiting with her sister, much more cheerful and is agreeable to plan of increased intake and therapy prior to debridement of the left heel. OBJECTIVE: VITAL SIGNS: Show temperature is 98.8, pulse 101, respirations 18, O2 saturations 95% on room air, blood pressure 153/63. LUNGS: Clear. CARDIAC: Regular rhythm. ABDOMEN: Soft and nontender. EXTREMITIES: Left heel is bandaged. ASSESSMENT: 1. Improving deconditioning. 2. Improving nutrition. 3. Stable left heel decubitus. 4. Stable end-stage renal disease on hemodialysis. PLAN: Continue hemodialysis 3 times weekly. Continue PT twice daily. Continue to stress adequate oral intake with protein supplements. Job ID: [id number]
--- NOTE | 2018-11-13 11:37 | PRG ---
DATE OF SERVICE: 11/11/2018 SUBJECTIVE: The patient feels better, has returned from visit with Dr. Rivera today, who states that she will need more surgery, but can wait until she is stronger and has recovered from her deconditioning. He feels that she is eating well enough, and therefore, she is feeling much better and willing to continue with therapy. OBJECTIVE: VITAL SIGNS: Shows temperature is 98, pulse is 91, respirations are 18, O2 saturation is 98% on room air. Blood pressure is 158/67. LUNGS: Clear. CARDIAC: Showed regular rhythm. ABDOMEN: Soft, nontender. EXTREMITIES: Left foot is bandaged. ASSESSMENT: 1. Stable end-stage renal disease on hemodialysis. 2. Improving deconditioning. 3. Improving oral nutrition secondary to decreasing anxiety. 4. Persistent poorly healing ulcer of the right heel with followup with Dr. Rivera in 3 weeks. PLAN: 1. Continue PT, OT with nonweightbearing to the heel. 2. Continue stressing increased oral intake and nutritional support. 3. Three continued hemodialysis for end-stage renal disease. Job ID: [id number]
[2018-11-13] MEDS: hydrOXYzine 25 MG TAB PO PRN ×2 (11:57→20:28)
[2018-11-13] MEDS: Lorazepam 1 MG TAB PO PRN (15:41)
--- NOTE | 2018-11-13 19:24 | PRG ---
DATE OF SERVICE: 11/13/2018 SUBJECTIVE: The patient lying in bed. States that she is eating well, but according to the nurses, only had one Nepro today and no meals, she is ready to do more therapy tomorrow. She has had no nausea or vomiting. OBJECTIVE: VITAL SIGNS: Temperature is 98, pulse 101, respirations 18, O2 saturations 95% on room air, blood pressure 153/63. EXTREMITIES: Left foot is bandaged. ABDOMEN: Soft and nontender. ASSESSMENT: 1. Persistent poor oral intake secondary to anxiety and gastric sleeve operation. 2. Poorly healing heel ulcer in need of further debridement by Dr. Rivera scheduled in several weeks. 3. Deconditioning and will need to cooperate with therapy starting tomorrow. PLAN: Continue PT/OT with nonweightbearing on the heel. Continue to stress. Intake of Nepro 3 to 4 cans daily in addition to meals. Continue wound care. Job ID: [id number]
[2018-11-13] MEDS: Mirtazapine 30 MG TAB PO SCH (20:28)
[2018-11-14] MEDS: Ondansetron ODT 4 MG TAB PO SCH ×4 (01:37→18:20)
[2018-11-14] MEDS: Acetaminophen 500 MG TAB PO PRN (01:39)
[2018-11-14] MEDS: Metoclopramide HCl 10 MG TAB PO SCH ×4 (08:25→21:35)
[2018-11-14] MEDS: Heparin 5,000 UNITS/ML VIAL SC SCH ×2 (08:49→21:37)
[2018-11-14] MEDS: Multivitamin W/ Minerals 1 TAB PO SCH (08:59)
[2018-11-14] MEDS: Calcium Carbonate 500 MG ChewTAB PO SCH ×3 (08:59→17:22)
[2018-11-14] MEDS: PHOS-NAK 1 PKT PACK PER TUBE SCH (08:59)
[2018-11-14] MEDS: Ascorbic Acid 500 mg Chewable Tablet PO SCH ×2 (09:00→21:36)
[2018-11-14] MEDS: Cepastat Lozenges 1 LOZ PO SCH ×4 (09:02→21:06)
[2018-11-14] MEDS: HYDROcodone/Acetaminophen 5/325 mg Tablet PO PRN ×3 (09:10→21:36)
[2018-11-14] MEDS: Zinc Sulfate 220 MG CAP PO SCH (09:16)
[2018-11-14] MEDS: Megestrol Acetate 400 MG/10 ML UDCUP PO SCH (09:17)
[2018-11-14] MEDS: HYDROCORTISONE TOP SCH ×3 (09:22→21:39)
[2018-11-14] MEDS: PRAMOXINE TOP SCH ×3 (09:22→21:39)
[2018-11-14] MEDS: Dronabinol 2.5 MG CAP PO SCH ×2 (09:55→21:36)
[2018-11-14] MEDS ORDERED: HYDROCORTISONE TOP SCH (11:15)
[2018-11-14] MEDS ORDERED: PRAMOXINE TOP SCH (11:15)
[2018-11-14] MEDS: Mirtazapine 30 MG TAB PO SCH (21:35)
[2018-11-14] MEDS: hydrOXYzine 25 MG TAB PO PRN (21:36)
[2018-11-15] MEDS: Ondansetron ODT 4 MG TAB PO SCH ×4 (01:06→18:14)
--- NOTE | 2018-11-15 06:31 | PRG ---
DATE OF SERVICE: 11/14/2018 SUBJECTIVE: The patient lying in the bed, feels well. States she is eating well, cooperating well with therapy. In fact, is asking when she can be discharged home. The patient's daughter is power of eyeglass lens cutter and needs to agree as she has felt that she did not care for her in the past. Wound appears to be clean , but now exposed bone. The patient ambulated 30 minutes with therapy. OBJECTIVE: VITAL SIGNS: Temperature 98.8, pulse 90, respirations 20, O2 saturation 100% on room air, blood pressure 163/69. ASSESSMENT: 1. Exposed heel ulcer, in need of further debridement by Dr. Rivera with colonization with resistant Klebsiella, but no evidence urine infection. 2. Status post bariatric surgery with decreased but stable oral intake, and no further vomiting. 3. Anxiety and depression, stable. 4. End-stage renal disease, on hemodialysis, stable. PLAN: 1. Discuss discharge planning with Case Management and family. Continue to stress increased oral intake with Nepro. 2. Continue PT and nonweightbearing to the heel. 3. Continue hemodialysis 3 times weekly. Job ID: [id number]
[2018-11-15] MEDS: Metoclopramide HCl 10 MG TAB PO SCH ×4 (07:31→21:18)
[2018-11-15] MEDS: Calcium Carbonate 500 MG ChewTAB PO SCH ×4 (07:50→17:46)
[2018-11-15] MEDS: Acetaminophen 500 MG TAB PO PRN (09:16)
[2018-11-15] MEDS: Ascorbic Acid 500 mg Chewable Tablet PO SCH ×2 (09:17→21:18)
[2018-11-15] MEDS: Zinc Sulfate 220 MG CAP PO SCH (09:18)
[2018-11-15] MEDS: PRAMOXINE TOP SCH ×3 (09:19→21:20)
[2018-11-15] MEDS: Multivitamin W/ Minerals 1 TAB PO SCH (09:19)
[2018-11-15] MEDS: Dronabinol 2.5 MG CAP PO SCH ×2 (09:19→21:18)
[2018-11-15] MEDS: Cepastat Lozenges 1 LOZ PO SCH ×3 (09:19→21:18)
[2018-11-15] MEDS: HYDROCORTISONE TOP SCH ×3 (09:19→21:20)
[2018-11-15] MEDS: Heparin 5,000 UNITS/ML VIAL SC SCH ×2 (09:20→21:21)
[2018-11-15] MEDS: Megestrol Acetate 400 MG/10 ML UDCUP PO SCH (09:20)
[2018-11-15] MEDS: PHOS-NAK 1 PKT PACK PER TUBE SCH (09:20)
[2018-11-15] MEDS: HYDROcodone/Acetaminophen 5/325 mg Tablet PO PRN ×2 (11:26→18:13)
[2018-11-15] MEDS: Mirtazapine 30 MG TAB PO SCH (21:18)
[2018-11-15] MEDS: Lorazepam 1 MG TAB PO PRN (21:20)
[2018-11-16] MEDS: Ondansetron ODT 4 MG TAB PO SCH ×4 (01:16→17:51)
[2018-11-16] MEDS: HYDROcodone/Acetaminophen 5/325 mg Tablet PO PRN ×3 (04:46→17:51)
[2018-11-16] MEDS: Dronabinol 2.5 MG CAP PO SCH ×2 (09:13→20:55)
[2018-11-16] MEDS: Cepastat Lozenges 1 LOZ PO SCH ×3 (09:13→20:55)
[2018-11-16] MEDS: HYDROCORTISONE TOP SCH ×3 (09:13→20:58)
[2018-11-16] MEDS: Ascorbic Acid 500 mg Chewable Tablet PO SCH ×2 (09:13→20:55)
[2018-11-16] MEDS: Zinc Sulfate 220 MG CAP PO SCH (09:13)
[2018-11-16] MEDS: Calcium Carbonate 500 MG ChewTAB PO SCH ×3 (09:13→17:55)
[2018-11-16] MEDS: Metoclopramide HCl 10 MG TAB PO SCH ×4 (09:13→20:56)
[2018-11-16] MEDS: PRAMOXINE TOP SCH ×3 (09:13→20:58)
[2018-11-16] MEDS: Heparin 5,000 UNITS/ML VIAL SC SCH ×2 (09:14→20:56)
[2018-11-16] MEDS: Multivitamin W/ Minerals 1 TAB PO SCH (09:15)
[2018-11-16] MEDS: PHOS-NAK 1 PKT PACK PER TUBE SCH (09:15)
[2018-11-16] MEDS: Megestrol Acetate 400 MG/10 ML UDCUP PO SCH (09:15)
--- NOTE | 2018-11-16 20:22 | PRG ---
DATE OF SERVICE: 11/15/2018 SUBJECTIVE: The patient feels well and is asking when she will be discharged home and states that she will talk to her daughter and she has agreed to take her home. OBJECTIVE: VITAL SIGNS: Blood pressure is 189/77, temperature 97.9, pulse 92, respirations 18, O2 saturations 98% on room air. LUNGS: Clear. CARDIAC: Regular rhythm. ABDOMEN: Soft and nontender. EXTREMITIES: Show left heel bandaged. ASSESSMENT: 1. Stable left heel ulcer with exposed bone. 2. Improving deconditioning. 3. Stable end-stage renal disease, on hemodialysis. 4. Stable nutrition still not to goal, but the best the patient can do. PLAN: 1. Discussed discharge planning with PT and family. 2. Continue PT/OT. 3. Continue wound care. 4. Continue dialysis. Job ID: [id number]
--- NOTE | 2018-11-16 20:29 | PRG ---
DATE OF SERVICE: 11/16/2018 SUBJECTIVE: The patient states that her daughter states that she can go home whether this weekend. Feels well, feels that she is ready to go home. OBJECTIVE: VITAL SIGNS: Temperature is 97.3, pulse 88, respirations 16, O2 sats 99% on room air, blood pressure 151/66. LUNGS: Clear. CARDIAC: Regular rhythm. ABDOMEN: Soft and nontender. EXTREMITIES: Left heel is bandaged. ASSESSMENT: 1. Stable left heel decubitus stage 4. 2. Stable end-stage renal disease, on hemodialysis. 3. Improving deconditioning. 4. Stable nutritional support. PLAN: Clear discharge with PT and arrange for discharge later this week as the patient is requesting it. Job ID: [id number]
[2018-11-16] MEDS: Mirtazapine 30 MG TAB PO SCH (20:56)
[2018-11-16] MEDS: hydrOXYzine 25 MG TAB PO PRN (20:57)
[2018-11-17] MEDS: Ondansetron ODT 4 MG TAB PO SCH ×5 (05:33→23:57)
[2018-11-17] MEDS: Metoclopramide HCl 10 MG TAB PO SCH ×4 (07:25→20:54)
[2018-11-17] MEDS: Calcium Carbonate 500 MG ChewTAB PO SCH ×3 (07:29→18:39)
[2018-11-17] MEDS: PHOS-NAK 1 PKT PACK PER TUBE SCH (09:26)
[2018-11-17] MEDS: Dronabinol 2.5 MG CAP PO SCH ×2 (09:26→20:54)
[2018-11-17] MEDS: Ascorbic Acid 500 mg Chewable Tablet PO SCH ×2 (09:27→20:54)
[2018-11-17] MEDS: Multivitamin W/ Minerals 1 TAB PO SCH (09:27)
[2018-11-17] MEDS: Megestrol Acetate 400 MG/10 ML UDCUP PO SCH (09:28)
[2018-11-17] MEDS: Zinc Sulfate 220 MG CAP PO SCH (09:28)
[2018-11-17] MEDS: Heparin 5,000 UNITS/ML VIAL SC SCH ×2 (09:28→20:54)
[2018-11-17] MEDS: Cepastat Lozenges 1 LOZ PO SCH ×3 (09:29→20:54)
[2018-11-17] MEDS: HYDROCORTISONE TOP SCH ×3 (09:56→20:55)
[2018-11-17] MEDS: PRAMOXINE TOP SCH ×3 (09:56→20:55)
[2018-11-17] MEDS: HYDROcodone/Acetaminophen 5/325 mg Tablet PO PRN ×2 (11:22→18:41)
[2018-11-17] MEDS: Mirtazapine 30 MG TAB PO SCH (20:54)
[2018-11-17] MEDS: hydrOXYzine 25 MG TAB PO PRN (20:54)
[2018-11-17] MEDS: Acetaminophen 500 MG TAB PO PRN (22:04)
[2018-11-18] MEDS: Ondansetron ODT 4 MG TAB PO SCH ×3 (05:11→17:40)
[2018-11-18] MEDS: HYDROcodone/Acetaminophen 5/325 mg Tablet PO PRN ×2 (05:11→17:39)
[2018-11-18] MEDS: Calcium Carbonate 500 MG ChewTAB PO SCH ×3 (08:22→17:06)
[2018-11-18] MEDS: Cepastat Lozenges 1 LOZ PO SCH ×3 (08:25→19:39)
[2018-11-18] MEDS: Dronabinol 2.5 MG CAP PO SCH ×2 (09:26→21:01)
[2018-11-18] MEDS: Megestrol Acetate 400 MG/10 ML UDCUP PO SCH (09:26)
[2018-11-18] MEDS: Multivitamin W/ Minerals 1 TAB PO SCH (09:27)
[2018-11-18] MEDS: HYDROCORTISONE TOP SCH ×3 (09:28→21:17)
[2018-11-18] MEDS: PRAMOXINE TOP SCH ×3 (09:28→21:17)
[2018-11-18] MEDS: Metoclopramide HCl 10 MG TAB PO SCH ×4 (13:21→21:01)
[2018-11-18] MEDS: Ascorbic Acid 500 mg Chewable Tablet PO SCH ×2 (13:24→21:01)
[2018-11-18] MEDS: Zinc Sulfate 220 MG CAP PO SCH (13:29)
[2018-11-18] MEDS: Heparin 5,000 UNITS/ML VIAL SC SCH ×2 (13:31→21:02)
[2018-11-18] MEDS: PHOS-NAK 1 PKT PACK PER TUBE SCH (14:30)
[2018-11-18] MEDS: hydrOXYzine 25 MG TAB PO PRN (19:38)
[2018-11-18] MEDS: Acetaminophen 500 MG TAB PO PRN (19:38)
[2018-11-18] MEDS: Mirtazapine 30 MG TAB PO SCH (21:01)
[2018-11-19] MEDS: Ondansetron ODT 4 MG TAB PO SCH ×5 (00:37→23:45)
[2018-11-19] MEDS: hydrOXYzine 25 MG TAB PO PRN ×2 (03:00→23:30)
[2018-11-19] MEDS: HYDROcodone/Acetaminophen 5/325 mg Tablet PO PRN ×3 (03:00→23:27)
[2018-11-19] MEDS: Metoclopramide HCl 10 MG TAB PO SCH ×4 (07:23→23:27)
--- NOTE | 2018-11-19 08:04 | PRG ---
DATE OF SERVICE: 11/19/2018 SUBJECTIVE: Ms. Chino is a very pleasant 57-year-old black female with multiple problems. She has end-stage renal disease, is on hemodialysis 3 times a week. She has had a gastric sleeve, but has had very poor nutritional intake. She does have gastroparesis. She was eventually transferred to [facility] for physical therapy and occupational therapy and to monitor her nutritional status. The patient states she is doing well this morning, is hungry and states she is going out on pass because she is going to a family reunion where they have lots of good food. OBJECTIVE: VITAL SIGNS: Today reveal blood pressure 145/65, pulse 97 to 117, respirations 20, O2 saturation of 97% on room air and T-max 98.5. GENERAL: This is a well-developed, well-nourished black female, in no apparent distress at this time. HEENT: Reveals normocephalic and nontraumatic cranium. Pupils equally round and reactive. Extraocular movements are intact. Nose and throat are clear. Dobhoff tube has been removed since the last time I saw her. Mucous membranes are moist. NECK: Supple without masses, nodes or bruits. CHEST: Clear to auscultation. No rales, no rhonchi, no wheezes or cough is heard. HEART: Reveals a regular rate and rhythm without murmurs, gallops, or rubs. ABDOMEN: Soft, nontender. No organomegaly is noted. Normal bowel sounds are noted in all 4 quadrants. No rebound or guarding is noted. Abdominal incision is healed. : Exam is deferred. EXTREMITIES: Reveal generalized weakness, but the patient has no clubbing, cyanosis, or edema. The patient's left heel is still bandaged. NEUROLOGIC: The patient is oriented x3. ASSESSMENT: 1. Diabetes type 2 with her blood sugars fairly well controlled. Most of her sugars yesterday were less than 100, but once before lunch, she had a 204. 2. End-stage renal disease, on hemodialysis 3 times a week. 3. Left heel ulcer. 4. Catabolic state secondary to end-stage renal disease. 5. Nausea and vomiting, post gastric sleeve. 6. Malnutrition secondary to nausea and vomiting. 7. Cough. 8. Generalized weakness. PLAN: 1. Continue dialysis Wednesday, , Wednesday. 2. Encourage the patient to eat well. 3. Wound care for the patient's decubitus on the heel. 4. Monitor the patient's blood pressure. 5. Monitor the patient's diabetes with Accu-Cheks before meals and at bedtime. 6. Continue Reglan and Zofran for gastroparesis. 7. Supportive care. Job ID: [id number]
[2018-11-19] MEDS: PHOS-NAK 1 PKT PACK PER TUBE SCH (08:44)
[2018-11-19] MEDS: Megestrol Acetate 400 MG/10 ML UDCUP PO SCH (08:45)
[2018-11-19] MEDS: Calcium Carbonate 500 MG ChewTAB PO SCH ×3 (08:46→18:24)
[2018-11-19] MEDS: Zinc Sulfate 220 MG CAP PO SCH (08:46)
[2018-11-19] MEDS: Ascorbic Acid 500 mg Chewable Tablet PO SCH ×2 (08:47→23:29)
[2018-11-19] MEDS: Multivitamin W/ Minerals 1 TAB PO SCH (08:48)
[2018-11-19] MEDS: Cepastat Lozenges 1 LOZ PO SCH ×3 (08:49→23:29)
[2018-11-19] MEDS: Heparin 5,000 UNITS/ML VIAL SC SCH ×2 (08:49→23:30)
[2018-11-19] MEDS: Dronabinol 2.5 MG CAP PO SCH ×2 (08:57→23:30)
[2018-11-19] MEDS: PRAMOXINE TOP SCH ×3 (08:59→23:32)
[2018-11-19] MEDS: HYDROCORTISONE TOP SCH ×3 (08:59→23:32)
[2018-11-19] MEDS: Lorazepam 0.5 MG TAB PO PRN (11:19)
[2018-11-19] MEDS: Mirtazapine 30 MG TAB PO SCH (23:27)
[2018-11-20] MEDS: Ondansetron ODT 4 MG TAB PO SCH ×3 (05:24→18:01)
--- NOTE | 2018-11-20 07:31 | PRG ---
DATE OF SERVICE: 11/20/2018 SUBJECTIVE: The patient is a very pleasant 57-year-old black female with multiple medical problems. She had a gastric sleeve done, but has had very poor nutritional intake. She does have gastroparesis. She has end-stage renal disease, on hemodialysis 3 times a week. She was stabilized at the [facility] up in [place] and was transferred to [facility] for PT, OT, and to monitor her nutritional status. The patient did go out on pass yesterday to have [facility] family reunion with lots of food. She states she did fairly well, but did not eat as much as she thought she was going to. She states she came back late last night and is somewhat still tired and sleepy this morning. OBJECTIVE: VITAL SIGNS: Today reveal blood pressure 121/55, pulse 90 to 94, respirations 18 to 20, O2 saturation 97% to 99% on room air, T-max 98.7. GENERAL: This is a well-developed, well-nourished, slightly obese black female, who states she is doing well, and in no apparent distress. HEENT: Normocephalic and nontraumatic cranium. Pupils are equally round and reactive. Extraocular movements are intact. Nose and throat are all moist. NECK: Supple without masses, nodes, or bruits. CHEST: Clear to auscultation. No rales, rhonchi, or wheezes are heard. No cough is noted. HEART: Reveals a regular rate and rhythm. No murmurs, gallops, or rubs are noted. ABDOMEN: Soft and nontender without organomegaly. Bowel sounds are slow, but present in all 4 quadrants. No rebound or guarding is noted. : Deferred. EXTREMITIES: Reveal no clubbing, cyanosis, or edema. The patient's left heel is still bandaged and protected. NEUROLOGIC: The patient is oriented x3. ASSESSMENT: 1. Diabetes type 2 with sugars that are well controlled. 2. End-stage renal disease, on hemodialysis 3 times a week. 3. Malnutrition secondary to nausea and vomiting. 4. Nausea and vomiting secondary to gastric sleeve. 5. Catabolic state secondary to end-stage renal disease. 6. Generalized weakness. PLAN: 1. Continue to encourage the patient to eat best she can. 2. Continue to monitor the patient's blood pressure and adjust medications as needed. 3. Monitor the patient's diabetes with Accu-Cheks before meals and at bedtime. 4. Continue Reglan and Zofran p.r.n. gastroparesis. 5. Continue dialysis on Wednesday, , and Wednesday. 6. Supportive care. Job ID: [id number]
[2018-11-20] MEDS: Acetaminophen 500 MG TAB PO PRN (08:12)
[2018-11-20] MEDS: Zinc Sulfate 220 MG CAP PO SCH (08:12)
[2018-11-20] MEDS: Ascorbic Acid 500 mg Chewable Tablet PO SCH ×2 (08:12→21:01)
[2018-11-20] MEDS: Metoclopramide HCl 10 MG TAB PO SCH ×4 (08:12→21:01)
[2018-11-20] MEDS: Cepastat Lozenges 1 LOZ PO SCH ×3 (08:13→21:03)
[2018-11-20] MEDS: Calcium Carbonate 500 MG ChewTAB PO SCH ×3 (08:13→17:50)
[2018-11-20] MEDS: Multivitamin W/ Minerals 1 TAB PO SCH (08:13)
[2018-11-20] MEDS: Dronabinol 2.5 MG CAP PO SCH ×2 (08:13→21:02)
[2018-11-20] MEDS: HYDROCORTISONE TOP SCH ×3 (08:14→21:04)
[2018-11-20] MEDS: PRAMOXINE TOP SCH ×3 (08:14→21:04)
[2018-11-20] MEDS: PHOS-NAK 1 PKT PACK PER TUBE SCH (08:14)
[2018-11-20] MEDS: Megestrol Acetate 400 MG/10 ML UDCUP PO SCH (08:15)
[2018-11-20] MEDS: Heparin 5,000 UNITS/ML VIAL SC SCH ×2 (08:17→21:02)
[2018-11-20] MEDS: HYDROcodone/Acetaminophen 5/325 mg Tablet PO PRN ×2 (13:38→21:02)
[2018-11-20] MEDS: Mirtazapine 30 MG TAB PO SCH (21:01)
[2018-11-20] MEDS: hydrOXYzine 25 MG TAB PO PRN (21:02)
[2018-11-21] MEDS: Ondansetron ODT 4 MG TAB PO SCH ×4 (02:14→17:51)
[2018-11-21] MEDS: Megestrol Acetate 400 MG/10 ML UDCUP PO SCH (08:42)
[2018-11-21] MEDS: Heparin 5,000 UNITS/ML VIAL SC SCH ×2 (08:42→21:24)
[2018-11-21] MEDS: Dronabinol 2.5 MG CAP PO SCH ×2 (08:42→21:23)
[2018-11-21] MEDS: Cepastat Lozenges 1 LOZ PO SCH ×4 (08:43→23:05)
[2018-11-21] MEDS: HYDROCORTISONE TOP SCH ×3 (08:43→21:30)
[2018-11-21] MEDS: Ascorbic Acid 500 mg Chewable Tablet PO SCH ×2 (08:43→21:24)
[2018-11-21] MEDS: Metoclopramide HCl 10 MG TAB PO SCH ×4 (08:43→21:30)
[2018-11-21] MEDS: Multivitamin W/ Minerals 1 TAB PO SCH (08:43)
[2018-11-21] MEDS: PRAMOXINE TOP SCH ×3 (08:43→21:30)
[2018-11-21] MEDS: Calcium Carbonate 500 MG ChewTAB PO SCH ×3 (08:43→17:52)
[2018-11-21] MEDS: Zinc Sulfate 220 MG CAP PO SCH (08:43)
[2018-11-21] MEDS: PHOS-NAK 1 PKT PACK PER TUBE SCH (08:43)
[2018-11-21] MEDS: HYDROcodone/Acetaminophen 5/325 mg Tablet PO PRN ×3 (09:20→21:24)
--- NOTE | 2018-11-21 11:22 | PRG ---
DATE OF SERVICE: 11/17/2018 SUBJECTIVE: The patient feels well. No complaints, but apparently has misunderstood her daughter and is unable to be discharged home and she is unable to care for herself and daughter works. The patient asked me to speak to her daughter about this. OBJECTIVE: VITAL SIGNS: Show her temperature is 99, pulse 108, respirations 20, O2 saturation 99% on room air, and blood pressure 140/65. CARDIAC: Showed regular rhythm. No gallops or murmurs. ABDOMEN: Soft and nontender. SKIN AND EXTREMITIES: Show left heel is bandaged. ASSESSMENT: 1. Stable left heel decubitus in need of further debridement by Dr. Rivera with stage IV. 2. Stable end-stage renal disease on hemodialysis. 3. Improving deconditioning, but still unable to maintain ADLs. 4. Improving nutritional support. PLAN: Discuss discharge planning with daughter tomorrow and discuss with social welfare clerk and begin to evaluate for other facilities. Job ID: [id number]
--- NOTE | 2018-11-21 11:38 | PRG ---
DATE OF SERVICE: 11/21/2018 SUBJECTIVE: The patient is lying in the bed, eating her Nepro, states she feels well. However, when discussed with her that she will not be able to go home with her daughter. She acted like she did not understand and nurses states that she has been depressed all weekend, most likely because of this news. OBJECTIVE: VITAL SIGNS: Show temperature is 98.6, pulse 91, respirations 20, O2 saturations 96% on room air, blood pressure is 177/72. LUNGS: Clear. CARDIAC: Showed regular rhythm. ABDOMEN: Soft and nontender. ASSESSMENT: 1. Stable end-stage renal disease, on hemodialysis. 2. Stage IV heel decubitus, need further debridement, bandaged, with follow up with surgeon next week. 3. Nutritional support, stable, status post bariatric surgery, on Nepro supplementation. 4. Severe deconditioning with inability to maintain ADLs and evaluating for transfer to a [facility] facility. Job ID: [id number]
--- NOTE | 2018-11-21 12:01 | PRG ---
DATE OF SERVICE: 11/18/2018 SUBJECTIVE: Discussed the patient's condition with daughter who again reiterates that she cannot care for her at home as she works and also discussed with Physical Therapy, also agreed that she needs someone with her at all times and close to total assistance. OBJECTIVE: VITAL SIGNS: The patient is at dialysis right now, but vital signs today show her to have temperature 98.1, pulse is 117, respirations 20, O2 saturations 97% on room air, and blood pressure is 114/53. EXTREMITIES: Left foot is bandaged. LUNGS: Clear. CARDIAC: Regular rhythm. ASSESSMENT: 1. End-stage renal disease, on hemodialysis . 2. Severe deconditioning with inability to maintain activities of daily living, slowly improving. 3. Nutritional support, status post bariatric surgery, stabilizing, eating 1000 calories daily. 4. Anxiety and depression, inability to care for herself and resistance to discharge to [facility]. PLAN: Daughter has met with hospice social worker and will look at nursing homes next week in [place], and we will continue PT and nutritional support until discharge. Job ID: [id number]
[2018-11-21] MEDS: hydrOXYzine 25 MG TAB PO PRN (15:10)
[2018-11-21] MEDS: Mirtazapine 30 MG TAB PO SCH (21:30)
[2018-11-21] MEDS: Lorazepam 0.5 MG TAB PO PRN (21:31)
[2018-11-22] MEDS: Ondansetron ODT 4 MG TAB PO SCH ×4 (03:29→17:53)
[2018-11-22] MEDS: Ascorbic Acid 500 mg Chewable Tablet PO SCH ×2 (08:43→20:41)
[2018-11-22] MEDS: Metoclopramide HCl 10 MG TAB PO SCH ×4 (08:43→20:42)
[2018-11-22] MEDS: Heparin 5,000 UNITS/ML VIAL SC SCH ×2 (08:43→20:42)
[2018-11-22] MEDS: Zinc Sulfate 220 MG CAP PO SCH (08:43)
[2018-11-22] MEDS: Cepastat Lozenges 1 LOZ PO SCH ×3 (08:44→20:41)
[2018-11-22] MEDS: Calcium Carbonate 500 MG ChewTAB PO SCH ×3 (08:44→18:02)
[2018-11-22] MEDS: Dronabinol 2.5 MG CAP PO SCH ×2 (08:44→20:41)
[2018-11-22] MEDS: Megestrol Acetate 400 MG/10 ML UDCUP PO SCH (08:44)
[2018-11-22] MEDS: Multivitamin W/ Minerals 1 TAB PO SCH (08:45)
[2018-11-22] MEDS: PHOS-NAK 1 PKT PACK PER TUBE SCH (08:45)
[2018-11-22] MEDS: PRAMOXINE TOP SCH ×3 (08:45→20:42)
[2018-11-22] MEDS: HYDROCORTISONE TOP SCH ×3 (08:45→20:42)
[2018-11-22] MEDS: HYDROcodone/Acetaminophen 5/325 mg Tablet PO PRN ×2 (09:07→17:55)
[2018-11-22] MEDS: hydrOXYzine 25 MG TAB PO PRN (17:55)
[2018-11-22] MEDS: Mirtazapine 30 MG TAB PO SCH (20:42)
[2018-11-23] MEDS: Ondansetron ODT 4 MG TAB PO SCH ×3 (04:06→11:10)
--- NOTE | 2018-11-23 07:47 | PRG ---
DATE OF SERVICE: 11/22/2018 SUBJECTIVE: The patient feels depressed and upset that she is not going to be able to go home with her daughter this time but explained to her that she would need to maintain her ADLs and would be going to another rehab facility to get stronger and would follow up with her surgeon later this week for debridement of her left heel decubitus. OBJECTIVE: VITAL SIGNS: Shows temperature is 96, pulse 89, respirations 20, O2 sats 98% on room air, and blood pressure 166/72. ABDOMEN: Soft and nontender. LUNGS: Clear. CARDIAC: Regular rhythm. EXTREMITIES: Left heel is bandaged. ASSESSMENT: 1. Stable status post gastric sleeve with poor but stable caloric intake. 2. Stable end-stage renal disease on hemodialysis, tolerating well. 3. Stage IV heel decubitus, poorly healing, needing further surgical debridement with followup with surgeon this week. 4. Severe deconditioning with inability to maintain the ADLs and improvement and evaluating for transfer to long-term skilled and unskilled facility if unable to improve. Job ID: [id number]
[2018-11-23] MEDS: HYDROcodone/Acetaminophen 5/325 mg Tablet PO PRN ×2 (07:56→15:43)
[2018-11-23] MEDS: Ascorbic Acid 500 mg Chewable Tablet PO SCH (07:57)
[2018-11-23] MEDS: Multivitamin W/ Minerals 1 TAB PO SCH (07:58)
[2018-11-23] MEDS: Metoclopramide HCl 10 MG TAB PO SCH ×3 (07:58→17:13)
[2018-11-23] MEDS: Zinc Sulfate 220 MG CAP PO SCH (07:58)
[2018-11-23] MEDS: Dronabinol 2.5 MG CAP PO SCH (08:00)
[2018-11-23] MEDS: Cepastat Lozenges 1 LOZ PO SCH ×2 (08:00→15:44)
[2018-11-23] MEDS: HYDROCORTISONE TOP SCH ×2 (08:01→15:44)
[2018-11-23] MEDS: Megestrol Acetate 400 MG/10 ML UDCUP PO SCH (08:01)
[2018-11-23] MEDS: PRAMOXINE TOP SCH ×2 (08:01→15:44)
[2018-11-23] MEDS: Heparin 5,000 UNITS/ML VIAL SC SCH (08:02)
[2018-11-23] MEDS: PHOS-NAK 1 PKT PACK PER TUBE SCH (08:02)
[2018-11-23] MEDS: Calcium Carbonate 500 MG ChewTAB PO SCH ×3 (08:16→17:12)
[2018-11-23] MEDS: Acetaminophen 500 MG TAB PO PRN (11:10)
[2018-11-23 17:30] VITALS: BP 147/66; TEMP 98.3
== END 2018-11-23 17:25 | disposition home health service (06) | DRG 592 ==
LOC: NAV ACUTE 19:46
PROVIDERS: ADMIT Internal Medicine; ATTEND Internal Medicine
DX: L89.624 Pressure ulcer of left heel, stage 4 (principal); N18.6 End stage renal disease; I12.0 Hypertensive chronic kidney disease with stage 5 chronic kidney disease or end stage renal disease; E46 Unspecified protein-calorie malnutrition; T82.41XA Breakdown (mechanical) of vascular dialysis catheter, initial encounter; E11.43 Type 2 diabetes mellitus with diabetic autonomic (poly)neuropathy; E11.22 Type 2 diabetes mellitus with diabetic chronic kidney disease; K31.84 Gastroparesis; R53.81 Other malaise; R05 Cough; R53.1 Weakness; F32.9 Major depressive disorder, single episode, unspecified; F48.9 Nonpsychotic mental disorder, unspecified; R11.2 Nausea with vomiting, unspecified; B96.1 Klebsiella pneumoniae [K. pneumoniae] as the cause of diseases classified elsewhere; F41.1 Generalized anxiety disorder; Z98.84 Bariatric surgery status; Z89.412 Acquired absence of left great toe; Z99.2 Dependence on renal dialysis; Z90.49 Acquired absence of other specified parts of digestive tract; Z90.89 Acquired absence of other organs; Z98.41 Cataract extraction status, right eye; Z98.42 Cataract extraction status, left eye; Z90.11 Acquired absence of right breast and nipple; Z79.2 Long term (current) use of antibiotics; Z88.5 Allergy status to narcotic agent; Z91.040 Latex allergy status; Z68.30 Body mass index [BMI] 30.0-30.9, adult; Y83.8 Other surgical procedures as the cause of abnormal reaction of the patient, or of later complication, without mention of misadventure at the time of the procedure
CPT/HCPCS: 36416; 80048; 80053; 84100; 85025; 87070; 87077; 87186; 87205; 97602; J1644; J8597; Q0162; Q0167